=== PATIENT | female | born 1980 | race Caucasian/White ===

== ENCOUNTER 2020-02-06 11:23 | Outpatient (REF) | payer OTHER, SELFPAY ==
[2020-02-07 08:38] LABS: Syphilis Screen Nonreactive (Nonreactive)
[2020-02-07 08:43] LABS: ~HepC Num1 0.05 S/CO (0.00-0.79)
[2020-02-07 08:44] LABS: HIV AB/AG Nonreactive (Nonreactive); HIV Num 1 0.05 S/CO (0.00-0.99); ~Hepatitis C Antibody Nonreactive (Nonreactive)
[2020-02-07 09:26] LABS: CT PCR NOT DETECTED (Not Detect.)
[2020-02-07 09:27] LABS: NG PCR NOT DETECTED (Not Detect.)
[2020-02-07 10:32] LABS: BV Int Neg Control Negative (Negative); BV Int Pos Control Positive (Positive)
[2020-02-12 02:47] LABS: HPV mRNA E6/E7 rflx Not Detected (Not Detected)
== END 2020-02-06 11:24 | disposition home or self-care (01) ==
LOC: HO.LAB 11:23
PROVIDERS: PCP Family Medicine; Referring Provider Family Medicine; Visit Provider Advanced Practice Midwife
DX: Z01.419 Encounter for gynecological examination (general) (routine) without abnormal findings (principal); N39.3 Stress incontinence (female) (male); Z20.2 Contact with and (suspected) exposure to infections with a predominantly sexual mode of transmission
CPT/HCPCS: 86780; 86803; 87389; 87480; 87491; 87510; 87591; 87624; 87625; 87660; 88142; 99212

== ENCOUNTER → 2020-04-20 12:04 | Outpatient (BNVA) | payer OTHER, SELFPAY | PROVIDERS: PCP Family Medicine; Visit Provider Obstetrics & Gynecology | DX: Z76.89 Persons encountering health services in other specified circumstances (principal) ==

== ENCOUNTER 2021-03-24 13:50 | Outpatient (REF) | payer OTHER, SELFPAY ==
[2021-03-25 01:29] LABS: CT PCR NOT DETECTED (Not Detect.); NG PCR NOT DETECTED (Not Detect.)
[2021-03-25 11:07] LABS: BV Int Neg Control Negative (Negative); BV Int Pos Control Positive (Positive)
[2021-03-26 20:07] LABS: HPV mRNA E6/E7 rflx Not Detected (Not Detected)
== END 2021-03-24 13:51 | disposition home or self-care (01) ==
LOC: HO.LAB 13:50
PROVIDERS: PCP Family Medicine; Visit Provider Advanced Practice Midwife
DX: Z01.411 Encounter for gynecological examination (general) (routine) with abnormal findings (principal); Z11.51 Encounter for screening for human papillomavirus (HPV); N39.3 Stress incontinence (female) (male); Z20.2 Contact with and (suspected) exposure to infections with a predominantly sexual mode of transmission; Z87.42 Personal history of other diseases of the female genital tract
CPT/HCPCS: 87480; 87491; 87510; 87591; 87624; 87660; 88142

== ENCOUNTER 2022-09-15 11:33 | Outpatient (REF) | payer OTHER, SELFPAY ==
[2022-09-16 10:28] LABS: CT PCR NOT DETECTED (Not Detect.); NG PCR NOT DETECTED (Not Detect.)
[2022-09-16 11:13] LABS: BV Int Neg Control Negative (Negative); BV Int Pos Control Positive (Positive)
[2022-09-20 22:08] LABS: HPV mRNA E6/E7 rflx Not Detected (Not Detected)
== END 2022-09-15 11:34 | disposition home or self-care (01) ==
LOC: HO.LNP 11:33
PROVIDERS: PCP Family Medicine; Visit Provider Advanced Practice Midwife
DX: Z01.419 Encounter for gynecological examination (general) (routine) without abnormal findings (principal); N39.3 Stress incontinence (female) (male); R87.613 High grade squamous intraepithelial lesion on cytologic smear of cervix (HGSIL); Z20.2 Contact with and (suspected) exposure to infections with a predominantly sexual mode of transmission; Z79.899 Other long term (current) drug therapy; Z87.42 Personal history of other diseases of the female genital tract
CPT/HCPCS: 0353U; 87480; 87510; 87624; 87660; 88142

== ENCOUNTER 2023-07-06 13:03 | Outpatient (AMB) | payer OTHER, SELFPAY ==
--- NOTE | 2023-07-06 13:04 | MHC.OFFVIS ---
Intake Vital Signs 07/06/23 13:05 Height 5 ft 2 in Weight 156 lb BMI 28.5 BP 104/62 Intake Visit Reasons: control consult Intake Note: would like to start the patches. Tugboat Dispatcher Required: No Allergies penicillin V Allergy (Unknown, Verified 07/06/23 13:06) rash Medication List - Last Reconciled 07/06/23 by Bernarda Harper CNM albuterol sulfate 90 mcg/actuation inhalation azelastine 2 sprays intranasal BID fluticasone propionate 50 mcg/actuation 2 intranasal DAILY levocetirizine 5 mg PO QPM lorazepam 1 mg PO DAILY PRN montelukast 10 mg PO DAILY Is last menstrual period known: Yes Last menstrual period: 06/17/23 Post menopausal: No HPI control consult HPI Details Patient is here because she wants to get back on control. She has not been sexually active for a while she was on control patches in the past and she liked them and she wants to get back on them as well now. She has had a mammogram recently she has no personal history of blood clots she did note that her family has a history of something with cholesterol and buildup of plaque and both of her parents had some procedure to the carotid arteries but no clots per se there on medication for cholesterol hers has been fine every time it has been checked she has not sedentary. She does not want to get at this stage in her life she might be interested in a tubal ligation but for now she wants to start on the patches. We reviewed exactly how to start them and danger signs to look for and to report and seek emergency care if she ever got any pain in her leg her chest or her head. She does not smoke. She does have a history of abnormal Paps in the past but her last Pap smear was negative with negative HPV in September and she is due for an upcoming annual exam this coming September. She is planning also to use condoms 100%. She has not resumed sexual activity yet she wants to get taken care of for prevention 1st. She is going to start per my instructions around day 3 4 or 5 of her next menses when it is heaviest the 1st day for her is always spotting so that would not necessarily be the day to start I reviewed why it is better to start early in the cycle while she is on her menses rather than wait for Monday starts later on as many people make the mistake of starting on the Monday after the end of their menses and by then they may be ovulating. Also reviewed all the other more subtle side effects of control pills and their analogs patches, because now that she is older she may become more aware of them (in particular mentioned slightly decreased libido and possible slightly decreased vaginal lubrication for which water-based lubricants might be available and helpful). We will see her in September for her annual exam and Pap follow-up and patch follow-up as well as blood pressure check. [facility] Medical History (Updated 07/06/23 @ 13:49 by Bernarda Harper CNM) HGSIL (high grade squamous intraepithelial lesion) on Pap smear of cervix Anxiety Asthma Surgical History (Updated 07/06/23 @ 13:16 by KAREN Sood) History of loop electrical excision procedure (LEEP) No history of previous surgery Family History (Updated 07/06/23 @ 13:09 by KAREN Sood) Paternal Grandmother Diabetes mellitus Maternal Aunt Colon cancer Maternal Aunt Breast cancer Social History (Updated 07/06/23 @ 13:09 by KAREN Sood) Alcohol intake: current Alcohol intake frequency: holidays/special occasions only Use of substances other than those prescribed or required for medical reasons: Yes Substance Use Type: Marijuana Gender identity: Female Female Reproductive History Menstrual Age of Menarche: 10 Duration of menses: 3-5 days Date of last menstrual period: 06/17/23 control method: none Total pregnancies: 1 Full term: 1 Number of Living Children: 1 Date of last pap smear: 09/19/22 (negative) History of abnormal pap smear: Yes (2014 2012 2010 2008 ASCUS, 2013 2011 2009 2007 MIKAELA 1, 2008 MIKAELA 2) Physical Exam Vital Signs: Last Vital Signs BP 104/62 07/06/23 13:05 BMI result Body Mass Index 28.5 Assessment & Plan Assessment & Plan (1) HGSIL (high grade squamous intraepithelial lesion) on Pap smear of cervix: Comment: history of abnormal pap.. 03/24/21 pap= neg, neg hpv; 09/15/2022 Pap is negative with negative HPV. Code(s): R87.613 - High grade squamous intraepithelial lesion on cytologic smear of cervix (HGSIL) (2) Hx of abnormal cervical Pap smear: Comment: . Code(s): Z87.42 - Personal history of other diseases of the female genital tract (3) Encounter for control: Comment: To start on control patch during heaviest days of next period. Code(s): Z30.9 - Encounter for contraceptive management, unspecified Plan Patient is here because she wants to get back on control. She has not been sexually active for a while she was on control patches in the past and she liked them and she wants to get back on them as well now. She has had a mammogram recently she has no personal history of blood clots she did note that her family has a history of something with cholesterol and buildup of plaque and both of her parents had some procedure to the carotid arteries but no clots per se there on medication for cholesterol hers has been fine every time it has been checked she has not sedentary. She does not want to get at this stage in her life she might be interested in a tubal ligation but for now she wants to start on the patches. We reviewed exactly how to start them and danger signs to look for and to report and seek emergency care if she ever got any pain in her leg her chest or her head. She does not smoke. She does have a history of abnormal Paps in the past but her last Pap smear was negative with negative HPV in September and she is due for an upcoming annual exam this coming September. She is planning also to use condoms 100%. She has not resumed sexual activity yet she wants to get taken care of for prevention 1st. She is going to start per my instructions around day 3 4 or 5 of her next menses when it is heaviest the 1st day for her is always spotting so that would not necessarily be the day to start I reviewed why it is better to start early in the cycle while she is on her menses rather than wait for Monday starts later on as many people make the mistake of starting on the Monday after the end of their menses and by then they may be ovulating. Also reviewed all the other more subtle side effects of control pills and their analogs patches, because now that she is older she may become more aware of them (in particular mentioned slightly decreased libido and possible slightly decreased vaginal lubrication for which water-based lubricants might be available and helpful). We will see her in September for her annual exam and Pap follow-up and patch follow-up as well as blood pressure check. Medications: New norelgestromin-ethin.estradiol 150-35 mcg/24 hr (Xulane) apply once weekly for 3 weeks of a 4-week cycle (3 weeks on 1 week off, 3 weeks on 1 week off... 1 patch transdermal Q7D 9 ea 3RF Coding Level of Care Code Est Pt Level 3 (29561) Diagnoses HGSIL (high grade squamous intraepithelial lesion) on Pap smear of cervix R87.613 Hx of abnormal cervical Pap smear Z87.42 Encounter for control Z30.9
[2023-07-06 13:05] VITALS: BP 104/62; BMI 28.5
== END 2023-07-06 14:10 | disposition home or self-care (01) ==
PROVIDERS: PCP Family Medicine; Visit Provider Advanced Practice Midwife
DX: R87.613 High grade squamous intraepithelial lesion on cytologic smear of cervix (HGSIL) (principal); Z87.42 Personal history of other diseases of the female genital tract; Z30.9 Encounter for contraceptive management, unspecified
CPT/HCPCS: 99213

== ENCOUNTER → 2023-07-06 13:03 | Outpatient (BNVA) | payer OTHER, SELFPAY | PROVIDERS: PCP Family Medicine; Visit Provider Advanced Practice Midwife | DX: Z30.9 Encounter for contraceptive management, unspecified (principal); R87.613 High grade squamous intraepithelial lesion on cytologic smear of cervix (HGSIL); Z87.42 Personal history of other diseases of the female genital tract | CPT/HCPCS: 99212 ==

== ENCOUNTER 2023-09-25 09:34 | Outpatient (AMB) | payer OTHER, SELFPAY ==
--- NOTE | 2023-09-25 09:40 | MHC.OFFVIS ---
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 Surveillance Inspector Required: No Information Interpreted: clinical only Business Support Professional: Business Support Professional Present Allergies penicillin V Allergy (Unknown, Verified 09/25/23 09:42) rash Medication List - Last Reconciled 09/25/23 by Bernarda Harper CNM albuterol sulfate 90 mcg/actuation inhalation azelastine 2 sprays intranasal BID fluticasone propionate 50 mcg/actuation 2 intranasal DAILY levocetirizine 5 mg PO QPM lorazepam 1 mg PO DAILY PRN montelukast 10 mg PO DAILY norelgestromin-ethin.estradiol 150-35 mcg/24 hr (Xulane) 1 patch transdermal Q7D Is last menstrual period known: Yes Last menstrual period: 09/12/23 HPI HPI 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 She has seen a neurologist for urinary tract infections which were recurring since she became sexually active and she was given an antibiotic to take after sex which so far as seems to be working. She is also drinking cranberry juice we discussed unsweetened cranberry juice Shabnam is it as well. She gets her mammograms and is up to date she still sometimes has some incontinence if she coughs or sneezes or does some thing active and if her bladders full. on questioning it does seem that is when she is held her urine. She did discuss this with her primary care provider and she thinks that pelvic floor therapy referral has been placed by her PCC in her case because she lives in [facility] it would be better for it to be within that system so she could go near her house. She has happy on the patches but she also has contemplated tubal ligation when she discussed it with Dr. Jackson many years ago she was told she was too young but she is now 42 and her youngest is 17 years old and she is much more sure. She tries to keep herself in shape. She had a LEEP x1 with Dr. James in 2007 she did have recurrent abnormal Pap smears for approximately 10 years after that more recent Paps have been normal. [facility] Medical History HGSIL (high grade squamous intraepithelial lesion) on Pap smear of cervix Anxiety Asthma Surgical History History of loop electrical excision procedure (LEEP) No history of previous surgery Family History Paternal Grandmother Diabetes mellitus Maternal Aunt Colon cancer Maternal Aunt Breast cancer Social History Alcohol intake: current Alcohol intake frequency: holidays/special occasions only Substance Use Type: Marijuana Gender identity: Female Female Reproductive History Menstrual Age of Menarche: 10 Duration of menses: 6-7 days Date of last menstrual period: 09/12/23 control method: patch Total pregnancies: 1 Full term: 1 Date of last pap smear: 09/15/22 (neg,previous pap 2016 wnl) History of abnormal pap smear: Yes (2007,abnormal pap) Date of Mammogram: 05/28/23 (negative) History of abnormal mammogram: No Physical Exam Vital Signs: Last Vital Signs BP 100/60 09/25/23 09:42 BMI result Body Mass Index 28.5 Const General: healthy appearing, comfortable, no acute distress, well developed and alert Nutritional Appearance: average body habitus Orientation/consciousness: patient oriented x3 Limitations: no limitations HEENT Head: Yes normocephalic Neck Neck: Yes normal visual inspection Chest Chest palpation & inspection: normal inspection of the chest Breast/axilla inspection: normal inspection of the breasts and normal inspection of the axillae Breast/axilla palpation: normal palpation of the breasts and normal palpation of the axillae Resp Effort & Inspection: normal respiratory effort GI Inspection: Yes normal to inspection, No Abdominal wall edema and No distended Palpation (GI): Soft to palpation and nontender Other: External exam within it is evidence of previous obstetrical appears. Cervix is multiparous appears pink and smooth and healthy. Uterus feels slightly bulky and firm we will get ultrasound to evaluate adnexa nontender good tone with Kegel. General: Yes bladder normal to palpation External Female Exam: normal external appearance and normal appearance of the urethra Speculum Exam - Vagina: normal appearance of the vagina, normal palpation and normal vaginal discharge Speculum Exam - Cervix: normal appearance of the cervix, normal palpation and nontender Bimanual exam- vagina & uterus: normal bimanual exam, normal palpation, uterine size normal, bladder normal to palpation, consistency normal, normal palpation, uterine mobility normal, uterine shape normal, No Cervical tenderness present, non-tender and no cervical motion tenderness Bimanual Exam- Adnexa, other: normal adnexae, no masses, normal and No adnexal tenderness Neuro General: patient oriented x3 Assessment & Plan Assessment & Plan (1) HGSIL (high grade squamous intraepithelial lesion) on Pap smear of cervix: Comment: History of high-grade MIKAELA 2 with high-risk HPV. LEEP was done 2007, serial Paps done afterward continued to be abnormal for approximately 10 years. 03/24/21 pap= neg, neg hpv; 09/15/2022 Pap is negative with negative HPV. Code(s): R87.613 - High grade squamous intraepithelial lesion on cytologic smear of cervix (HGSIL) Category: Medical (2) Well woman exam with routine gynecological exam: Onset Date: ~06/2019 Code(s): Z01.419 - Encounter for gynecological examination (general) (routine) without abnormal findings Category: Medical (3) Potential exposure to STD: Comment: see entire plan for details Code(s): Z20.2 - Contact with and (suspected) exposure to infections with a predominantly sexual mode of transmission Category: Medical (4) Bulky or enlarged uterus: Code(s): N85.2 - Hypertrophy of uterus Category: Medical (5) Stress bladder incontinence, female: Comment: Has seen specialists in [place] and has excellent tone with Kegel, discussed not holding urine. She may get pelvic floor therapy referral from her PCC. 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 She has seen a neurologist for urinary tract infections which were recurring since she became sexually active and she was given an antibiotic to take after sex which so far as seems to be working. She is also drinking cranberry juice we discussed unsweetened cranberry juice Shabnam is it as well. She gets her mammograms and is up to date she still sometimes has some incontinence if she coughs or sneezes or does some thing active and if her bladders full. on questioning it does seem that is when she is held her urine. She did discuss this with her primary care provider and she thinks that pelvic floor therapy referral has been placed by her PCC in her case because she lives in [facility] it would be better for it to be within that system so she could go near her house. She has happy on the patches but she also has contemplated tubal ligation when she discussed it with Dr. Jackson many years ago she was told she was too young but she is now 42 and her youngest is 17 years old and she is much more sure. She tries to keep herself in shape. She had a LEEP x1 with Dr. James in 2007 she did have recurrent abnormal Pap smears for approximately 10 years after that more recent Paps have been normal. Pap done because of her history of recurrent abnormals even after the LEEP. Testing for gonorrhea chlamydia trich Gardnerella and Tegan done. Her discharge appears completely normal. Her uterus feels slightly bulky on exam so I am ordering an ultrasound to check to see if she is going to fibroids. We will have a follow-up visit after that If she wishes to discuss getting her tubes tied with Dr. Vergara she may make that appointment if she so chooses. Reviewed anatomy and discussed the physics of physical intimacy and bacteria entering the urethra. Orders: Orders US pelvic and transvaginal Today N85.2 - Hypertrophy of uterus, R87.613 - High grade squamous intraepithelial lesion on cytologic smear of cervix (HGSIL), Z01.419 - Encounter for gynecological examination (general) (routine) without abnormal findings, Z20.2 - Contact with and (suspected) exposure to infections with a predominantly sexual mode of transmission, Z78.9 - Other specified health status Medications: Refilled norelgestromin-ethin.estradiol 150-35 mcg/24 hr (Xulane) apply once weekly for 3 weeks of a 4-week cycle (3 weeks on 1 week off, 3 weeks on 1 week off... 1 patch transdermal Q7D 9 ea 3RF Coding Level of Care Code Est Pt Prev Care 40-64y(30639) Diagnoses HGSIL (high grade squamous intraepithelial lesion) on Pap smear of cervix R87.613 Well woman exam with routine gynecological exam Z01.419 Potential exposure to STD Z20.2 Bulky or enlarged uterus N85.2 Stress bladder incontinence, female N39.3
[2023-09-25 09:42] VITALS: BP 100/60; BMI 28.5
== END 2023-09-25 10:33 | disposition home or self-care (01) ==
LOC: HO.HWSM 09:34
PROVIDERS: PCP Family Medicine; Visit Provider Advanced Practice Midwife
DX: Z01.419 Encounter for gynecological examination (general) (routine) without abnormal findings (principal); R87.613 High grade squamous intraepithelial lesion on cytologic smear of cervix (HGSIL); Z20.2 Contact with and (suspected) exposure to infections with a predominantly sexual mode of transmission; N85.2 Hypertrophy of uterus; N39.3 Stress incontinence (female) (male)
CPT/HCPCS: 99396

== ENCOUNTER 2023-09-25 09:34 | Outpatient (REF) | payer OTHER, SELFPAY ==
[2023-09-26 04:06] LABS: CT PCR NOT DETECTED (Not Detect.); NG PCR NOT DETECTED (Not Detect.)
[2023-09-26 10:51] LABS: Bacterial Vaginosis PCR NEGATIVE (Negative); Candida Group PCR DETECTED (Not Detect); Candida glab krusei PCR NOT DETECTED (Not Detect); Trichomonas vaginalis PCR NOT DETECTED (Not Detect)
[2023-10-02 20:33] LABS: HPV mRNA E6/E7 rflx Not Detected (Not Detected)
== END 2023-09-25 09:35 | disposition home or self-care (01) ==
LOC: HO.LAB 09:34
PROVIDERS: PCP Family Medicine; Visit Provider Advanced Practice Midwife
DX: Z01.419 Encounter for gynecological examination (general) (routine) without abnormal findings (principal); N89.8 Other specified noninflammatory disorders of vagina; R87.613 High grade squamous intraepithelial lesion on cytologic smear of cervix (HGSIL); N85.2 Hypertrophy of uterus; N39.3 Stress incontinence (female) (male); Z78.9 Other specified health status; Z20.2 Contact with and (suspected) exposure to infections with a predominantly sexual mode of transmission
CPT/HCPCS: 0352U; 0353U; 87624; 88142; 99396

== ENCOUNTER 2023-09-29 10:52 | Outpatient (REF) | payer OTHER, SELFPAY ==
--- NOTE | ~2023-09-29 | US_ITS ---
EXAMINATION: US PELVIS CLINICAL INFORMATION: Abnormal Pap, last menstrual period September 13, 2023. History of LEEP. COMPARISON: None available. TECHNIQUE: Ultrasound of the pelvis is performed using both transabdominal and transvaginal transducers along with Doppler. Transvaginal imaging is performed due to inadequate visualization transabdominally. FINDINGS: The uterus is anteverted and measures 11.0 x 7.1 x 7.5 cm. Multiple uterine fibroids are present, largest right fundus 4.9 cm, fundus 4.5 cm, left fundus 4.8 cm, fundus 2.3 cm, fundus 3.7 cm, 4.3 cm. Limited visualization of endometrium due to multiple fibroids. Imaged section of endometrium with thickness of 14 mm. Bilateral ovaries were not visualized. Limited visualization due to bowel gas. No significant free fluid. US/US pelvic and transvaginal IMPRESSION: 1. Multiple uterine fibroids, largest 4.9 cm. 2. Limited visualization of endometrium due to multiple fibroids. Imaged section of endometrium with thickness of 14 mm. 3. Bilateral ovaries were not visualized.
== END 2023-09-29 10:53 | disposition home or self-care (01) ==
LOC: HO.US 10:52
PROVIDERS: PCP Family Medicine; Visit Provider Advanced Practice Midwife
DX: R87.613 High grade squamous intraepithelial lesion on cytologic smear of cervix (HGSIL) (principal); Z20.2 Contact with and (suspected) exposure to infections with a predominantly sexual mode of transmission; N85.2 Hypertrophy of uterus; Z78.9 Other specified health status
CPT/HCPCS: 76830; 76856

== ENCOUNTER 2023-10-20 09:36 | Outpatient (AMB) | payer OTHER, SELFPAY ==
--- NOTE | 2023-10-20 09:58 | A.OFFVIS_ITS ---
Vital Signs 10/20/23 09:59 Weight 156 lb BP 100/60 Intake Visit Reasons: ultrasound results Health Policy Analyst Required: No Health Policy Analyst Services: Health Policy Analyst Present Information Interpreted: clinical only World Geography Teacher: World Geography Teacher Present Allergies penicillin V Allergy (Unknown, Verified 10/20/23 10:00) rash Is last menstrual period known: Yes Last menstrual period: 10/12/23 Do you need a note to return to daycare/school/sports/work: No HPI HPI ultrasound results: Details: Patient is here to review her ultrasound results and also other lab results. [facility] Medical History (Updated 10/20/23 @ 10:01 by Bernarda Harper CNM) HGSIL (high grade squamous intraepithelial lesion) on Pap smear of cervix Anxiety Asthma Surgical History History of loop electrical excision procedure (LEEP) No history of previous surgery Family History Paternal Grandmother Diabetes mellitus Maternal Aunt Colon cancer Maternal Aunt Breast cancer Social History Alcohol intake: current Alcohol intake frequency: holidays/special occasions only Substance Use Type: Marijuana Gender identity: Female Female Reproductive History Menstrual Age of Menarche: 10 Duration of menses: 3-5 days Date of last menstrual period: 10/12/23 control method: patch Date of last pap smear: 09/26/23 (pending,2022,neg.) History of abnormal pap smear: Yes Results Reviewed Results Reviewed: Patient: Rachna Otero MR#: [id number] : 1980 Acct:[id number] Age/Sex: 42 / F ADM Date: 09/29/23 Loc: HO.US Attending Dr: Bernarda Harper CNM Ordering Physician: Bernarda Harper CNM Date of Service: 09/29/23 Procedure(s): US pelvic and transvaginal Accession Number(s): [id number] cc: Jose Angel Ramirez MD; Bernarda Harper CNM~ EXAMINATION: US PELVIS CLINICAL INFORMATION: Abnormal Pap, last menstrual period September 13, 2023. History of LEEP. COMPARISON: None available. TECHNIQUE: Ultrasound of the pelvis is performed using both transabdominal and transvaginal transducers along with Doppler. Transvaginal imaging is performed due to inadequate visualization transabdominally. FINDINGS: The uterus is anteverted and measures 11.0 x 7.1 x 7.5 cm. Multiple uterine fibroids are present, largest right fundus 4.9 cm, fundus 4.5 cm, left fundus 4.8 cm, fundus 2.3 cm, fundus 3.7 cm, 4.3 cm. Limited visualization of endometrium due to multiple fibroids. Imaged section of endometrium with thickness of 14 mm. Bilateral ovaries were not visualized. Limited visualization due to bowel gas. No significant free fluid. US/US pelvic and transvaginal IMPRESSION: 1. Multiple uterine fibroids, largest 4.9 cm. 2. Limited visualization of endometrium due to multiple fibroids. Imaged section of endometrium with thickness of 14 mm. 3. Bilateral ovaries were not visualized. Dictated By: Latisha Santos MD Signed By: <Electronically signed by Latisha Santos MD in OV> 10/18/23 1432 DD/ 1112 TD/TT: Food And Beverage Coordinator: Pap is not yet back the HPV is negative. Other STIs negative Tegan on vaginal probe patient is asymptomatic but will send script for p.r.n. use. Assessment & Plan Assessment & Plan (1) Uses hormonal contraceptive patch as primary control method: Code(s): Z78.9 - Other specified health status Category: Social Hx (2) Bulky or enlarged uterus: Code(s): N85.2 - Hypertrophy of uterus Category: Medical (3) HGSIL (high grade squamous intraepithelial lesion) on Pap smear of cervix: Comment: History of high-grade MIKAELA 2 with high-risk HPV. LEEP was done 2007, serial Paps done afterward continued to be abnormal for approximately 10 years. 03/24/21 pap= neg, neg hpv; 09/15/2022 Pap is negative with negative HPV.; 09/25/2023 Pap is still pending but the HPV is negative. Code(s): R87.613 - High grade squamous intraepithelial lesion on cytologic smear of cervix (HGSIL) Category: Medical (4) Fibroids: Code(s): D21.9 - Benign neoplasm of connective and other soft tissue, unspecified Category: Medical Plan Reviewed ultrasound with MZ. Patient will be referred to Dr. Vergara to have a discussion about fibroids. CBC and TSH ordered to be done at least several days before the visit so results are available. She reports that her periods used to be very crampy but they are much better since she had been on the patch and she has really not having any issues or anything now she is however worried and she was worried that fibroids could represent a precursor to cancer. Discussed that issues will be discussed further when she has her visit. Also reviewed other labs testing for STIs was all negative she did have Tegan show up in the labs but she has no vaginal itching or burning at her request I did send a prescription to her pharmacy so she has access to Monistat cream should she need it. Reviewed prevention of yeast and self-care in general . She also has severe allergies chronically manages with 2 nasal sprays that are prescribed Orders: Orders Complete Blood Count no Diff Today D21.9 - Benign neoplasm of connective and other soft tissue, unspecified, N85.2 - Hypertrophy of uterus, R87.613 - High grade squamous intraepithelial lesion on cytologic smear of cervix (HGSIL), Z78.9 - Other specified health status Thyroid Stimulating Hormone Today D21.9 - Benign neoplasm of connective and other soft tissue, unspecified, N85.2 - Hypertrophy of uterus, R87.613 - High grade squamous intraepithelial lesion on cytologic smear of cervix (HGSIL), Z78.9 - Other specified health status Medications: New miconazole nitrate 2% (Miconazole-7) 1 appful vaginal BEDTIME 7 days 45 grams 2RF Coding Level of Care Code Est Pt Level 3 (59501) Diagnoses Uses hormonal contraceptive patch as primary control method Z78.9 Bulky or enlarged uterus N85.2 HGSIL (high grade squamous intraepithelial lesion) on Pap smear of cervix R87.613 Fibroids D21.9
[2023-10-20 09:59] VITALS: BP 100/60
== END 2023-10-20 10:43 | disposition home or self-care (01) ==
LOC: HO.HWSM 09:36
PROVIDERS: PCP Family Medicine; Visit Provider Advanced Practice Midwife
DX: Z78.9 Other specified health status (principal); N85.2 Hypertrophy of uterus; R87.613 High grade squamous intraepithelial lesion on cytologic smear of cervix (HGSIL); D21.9 Benign neoplasm of connective and other soft tissue, unspecified
CPT/HCPCS: 99213

== ENCOUNTER → 2023-10-20 09:36 | Outpatient (BNVA) | payer OTHER, SELFPAY | PROVIDERS: PCP Family Medicine; Visit Provider Advanced Practice Midwife | DX: N85.2 Hypertrophy of uterus (principal); R87.613 High grade squamous intraepithelial lesion on cytologic smear of cervix (HGSIL); D21.9 Benign neoplasm of connective and other soft tissue, unspecified; Z78.9 Other specified health status | CPT/HCPCS: 99212 ==

== ENCOUNTER 2024-01-08 11:28 | Outpatient (AMB) | payer OTHER, SELFPAY ==
[2024-01-08 11:39] VITALS: BP 112/68; BMI 28.2
--- NOTE | 2024-01-08 11:39 | A.OFFVIS_ITS ---
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 The patient is doing well with no complaints. Are regular and light on control patch, no pelvic pain and or pressure symptoms. Last co testing in 10/01 was negative Pelvic ultrasound in 10/31 showed the following: The uterus is anteverted and measures 11.0 x 7.1 x 7.5 cm. Multiple uterine fibroids are present, largest right fundus 4.9 cm, fundus 4.5 cm, left fundus 4.8 cm, fundus 2.3 cm, fundus 3.7 cm, 4.3 cm. Limited visualization of endometrium due to multiple fibroids. Imaged section of endometrium with thickness of 14 mm. Bilateral ovaries were not visualized. Limited visualization due to bowel gas. No significant free fluid. Last mammogram done at [facility] according to the patient in 06/03 was negative, report not available [facility] Medical History HGSIL (high grade squamous intraepithelial lesion) on Pap smear of cervix Anxiety Asthma Surgical History History of loop electrical excision procedure (LEEP) No history of previous surgery Family History Paternal Grandmother Diabetes mellitus Maternal Aunt Colon cancer Maternal Aunt Breast cancer Social History Alcohol intake: current Alcohol intake frequency: holidays/special occasions only Substance Use Type: Marijuana Gender identity: Female Female Reproductive History Menstrual Age of Menarche: 10 Date of last menstrual period: 12/10/23 control method: patch Review of Systems Const All systems reviewed & are unremarkable except as noted in HPI and below Reports as per HPI and Reports no additional complaints GI Reports no additional complaints Reports no additional complaints Physical Exam Vital Signs: Last Vital Signs BP 112/68 01/08/24 11:39 BMI result Body Mass Index 28.2 Assessment & Plan Assessment & Plan (1) Uterine myoma: Code(s): D25.9 - Leiomyoma of uterus, unspecified Category: Medical Plan: Discussed with the patient the results of the ultrasound and the size of the myomas. Discussed with the patient risk of myosarcoma and symptoms that are caused by myomas including but not limited to pelvic pain, pressure symptoms, abnormal uterine bleeding. In addition discussed with the patient options of treatment for myomas including: Serial ultrasounds periodically to follow-up on the size of the myoma while targeting the treatment against fibroids related symptoms ( control pills/patch, Mirena IUD, progesterone treatment, GnRH agonist/antagonist, uterine artery embolization or endometrial ablation) versus surgical treatment including hysterectomy and or myomectomy. All pros and cons, risks and benefits of all options were discussed with the patient. The patient understands that delay in surgical treatment in case of myosarcoma can affect her prognosis, after further discussion, the patient decided to stay on the patch and and proceed with expectant management, order for repeat ultrasound placed in six-month. Instructions given the patient to schedule a six-month follow-up appointment. Discussed with the patient control Pap including mechanism of action, benefits (regular menses, less dysmenorrhea, less risk of ovarian cancer, ...), risks ( DVT, PE, Strokes, OR, increased breast ca, others). Orders: Orders US pelvic and transvaginal 6 Months D25.9 - Leiomyoma of uterus, unspecified Coding Level of Care Code Est Pt Level 3 (67914) Diagnoses Uterine myoma D25.9
== END 2024-01-08 12:25 | disposition home or self-care (01) ==
PROVIDERS: PCP Family Medicine; Visit Provider Obstetrics & Gynecology
DX: D25.9 Leiomyoma of uterus, unspecified (principal)
CPT/HCPCS: 99213

== ENCOUNTER → 2024-01-08 11:28 | Outpatient (BNVA) | payer OTHER, SELFPAY | PROVIDERS: PCP Family Medicine; Visit Provider Obstetrics & Gynecology | DX: D25.9 Leiomyoma of uterus, unspecified (principal) | CPT/HCPCS: 99212 ==

== ENCOUNTER 2024-07-08 11:08 | Outpatient (REF) | payer OTHER, SELFPAY ==
--- NOTE | ~2024-07-08 | US_ITS ---
CLINICAL HISTORY: D25.9 - Leiomyoma of uterus, unspecified US pelvis transvaginal and transabdominal with Doppler Comparison: US/SR - US PELVIC AND TRANSVAGINAL - 09/29/23 10:57 EDT Findings: Transvaginal scanning performed. Anteverted uterus is 15.1 cm length. Multiple uterine fibroids. Largest of these are within the right fundus measuring 54 mm, which is increased, within the central uterine fundus measuring 56 mm, which is increased, within the left uterine fundus measuring 59 mm, which is increased, and within the lower uterine segment measuring 60 mm, which is increased. 31 mm left mid uterine fibroid is present which is increased. 22 mm right mid uterine fibroid is present which is decreased. No endometrial lesion, 6 mm thickness. Right ovary 2.5 x 1.8 x 2.2 cm. Left ovary 3.5 x 2.1 x 1.5 cm. Normal color Doppler of both ovaries. No free fluid. IMPRESSION: 1. Increased uterine fibroids. 2. No acute process. This document has been electronically signed by: Jovanny Hernández MD on 07/08/2024 15:36:03
--- OUTSIDE RECORDS SUMMARY | 2024-07-08 12:44 | XMS_ITS | Data Portability ---
Author Organization [place] [facility], Allergy Address [address] [place] [id number] Care Team Providers Care Block Engraver Name Role Phone GRAYSON PALMA Primary Care Provider Assessment Encounter Date Assessment Date Assessment LastModified by Organization Details LastModified Time 12/28/2023 12/28/2023 43 year old negin david who complained of itching in her left ear at recent physical, noted by PCP to have fluid in her left ear. Ear examination today is normal with a well aerated middle ear space. There is no sign of infection. Audiogram demonstrates normal hearing. We discussed that allergies can cause itching deep in the ear from time to time. She could try a short acting antihistamine, such as chlorpheniramine in addition to her other medications. She cannot undergo immunotherapy given her history of anaphylaxis. For itching of the outer ear she can try hydrocortisone cream as needed. Follow up with any futher concerns. [email or web address] Not available 12/28/2023 14:05:42 Plan of Treatment Reminders Order Date Submit Date Provider Last Modified By Organization Details Last Modified Time Details Appointments None recorded. Lab None recorded. Referral None recorded. Procedures None recorded. Surgeries None recorded. Imaging None recorded. Medication Orders hydrocortis one 1 % topical cream 2023 024 [facility][id number], [address] [place], [address], 14:06:15 Patient TargetsNo targets recorded. Patient InstructionsNo instructions recorded. Reason for Referral None Reported. Results Created Date Observation Date Name Description Value Unit Range Abnormal Flag Note LastModifiedBy Organization Detail LastModifiedTime 11/29/19 24 02/23/2023 imagi ng/di agnos tic resul t No observ ation record ed. [email or web address] Not Available 16:38:34 11/29/19 24 02/23/2023 imagi ng/di agnos tic resul t No observ ation record ed. [email or web address] Not Available 16:38:36 11/29/19 24 02/23/2023 imagi ng/di agnos tic resul t No observ ation record ed. [email or web address] Not Available 16:38:38 12/28/19 audio gram No observ ation record ed. BARCODE Not Available 2023 15:34:27 Result Notes None recorded. Problems Name Problem SNOMED Code Status Onset Date Resolution Date Notes Provider Name and Address Organization Details Recorded Time Nasal congestio n 61347812 Active 2022 Nasal congestion ; Note: Date Diagnosed: 12/19/2022 1:56 PM (R09.81) Not Available [facility] 4 03:22:06 Chronic maxillary sinusitis 05510567 Active 2022 Chronic maxillary sinusitis; Note: Date Diagnosed: 12/19/2022 1:56 PM (J32.0) Not Available [facility] 4 03:22:06 Headache 69440754 Active 2022 Headache, unspecifie d; Note: Changed from R51 to R51.9 (12/28/2022 4:25 PM) , Date Diagnosed: 12/19/2022 1:56 PM (R51) Not Available [facility] 4 03:22:06 Allergic rhinitis 98333490 Active 2022 Allergic rhinitis, unspecifie d; Note: Date Diagnosed: 12/19/2022 1:56 PM (J30.9) Not Available [facility] 4 03:22:06 Abnormal auditory perceptio n 52303120 Active 2023 ENEDINA CUELLAR, [facility] [address] [address], [facility] [place], [place], [address] , [facility] 4 13:47:01 Abnormal auditory perceptio n 36768156 Active 2023 ENEDINA CUELLAR, [facility] [address] [facility],[address] [address], [place], [address] , [facility] - [facility] 4 13:47:12 Itching of skin 291095945 Active 2023 REBECA MARLEY PA-C [address] [facility],[address] [address], [place], [address] , [facility] - [facility] 4 14:05:48 Problem Notes None recorded. Procedures Surgical History Date Name Laterality Status Provider Name and Address Organization Details Recorded Time 12/28/2023 Comp Audio with Tymps (92164 & 42490) completed ENEDINAJOSE ANTONIO CUELLAR, AUD [address] [facility] [address], , [address], [facility] 12/28/2023 13:46:53 Imaging Results Imaging Date Name Status LastModified by Organiz ation Details LastModified Time 02/23/2023 imaging/diagno stic result completed Information not available 11/29/2023 16:38:34 02/23/2023 imaging/diagno stic result completed Information not available 11/29/2023 16:38:36 02/23/2023 imaging/diagno stic result completed Information not available 11/29/2023 16:38:38 12/28/2023 audiogram completed BARCODE Information no t available 12/28/2023 15:34:27 Procedure Notes None recorded. Medical Equipment None Reported. Allergies Allergen ID Allergen Name Allergen Category Reaction Reaction Severity Criticality Documentation Date Start Date Code Code System Note Provider Name and Address Organization Details Recorded Time 95138 Product containin g penicilli n (product) medicatio n other Not available Not available 08/22/2023 [id number] SNOMED React ion: Unkno wn; Not Available [facility] 00:48:01 Medications Name Sig Start Date Stop Date Status Note LastModified by Organization Details LastModified Time prednisone 10 mg tablet active Medicatio n ID: [id number] Br and Name: prednison e Send Method: E-Prescri bed Subs Allowed: subs OK Medica tionGener icName: prednison e Not Available Not Available Not Available albuterol sulfate 1.25 mg/3 mL solution for nebulizati on active Medicatio n ID: [id number] Br and Name: albuterol sulfate S end Method: E-Prescri bed Subs Allowed: subs OK Specia l Instructi on: INHALE 1 VIAL VIA NEBULIZER EVERY 6 HOURS NEEDED FOR WHEEZING Medicatio nGenericN daniel: albuterol sulfate Not Available Not Available Not Available Advair Diskus 100 mcg-50 mcg/dose powder for inhalation active Medicatio n ID: [id number] Br and Name: Advair Diskus Se nd Method: E-Prescri bed Subs Allowed: subs OK Medica tionGener icName: Advair Diskus Not Available Not Available Not Available meclizine 12.5 mg tablet active Medicatio n ID: [id number] Br and Name: meclizine Send Method: E-Prescri bed Subs Allowed: subs OK Medica tionGener icName: meclizine Not Available Not Available Not Available sulfametho xazole 800 mg-trimeth oprim 160 mg tablet TAKE 1 TABLET BY MOUTH AFTER SEXUAL INTERCOUR SE active Not Available Not Available No t Available Miconazole -7 2 % vaginal cream APPLY 1 APPLICATO RFUL VAGINALLY AT BEDTIME FOR 7 DAYS active Not Available Not Available No t Available hydrocorti sone 1 % topical cream APPLY A THIN LAYER TO THE AFFECTED AREA(S) BY TOPICAL ROUTE 2 TIMES PER DAY 2023 active Not Available Not Available Not Avai lable nitrofuran toin macrocryst al 100 mg capsule TAKE 1 CAPSULE BY MOUTH TWICE A DAY FOR 7 DAYS active Not Available Not Available No t Available montelukas t 10 mg tablet TAKE 1 TABLET BY MOUTH EVERY DAY active Not Available Not Available No t Available lorazepam 1 mg tablet active Medicatio n ID: [id number] Br and Name: lorazepam Send Method: E-Prescri bed Subs Allowed: subs OK Medica tionGener icName: lorazepam Not Available Not Available Not Available azelastine 137 mcg (0.1 %) nasal spray USE 2 SPRAYS NASALLY TWICE A DAY DIRECTED active Not Available Not Available No t Available epinephrin e 0.3 mg/0.3 mL injection, auto-injec tor INJECT 0.3 MG INTRAMUSC ULARLY ONCE active Not Available Not Available No t Available Ventolin HFA 90 mcg/actuat ion aerosol inhaler INHALE 2 PUFFS EVERY 6 HOURS active Not Available Not Available No t Available norelgestr omin 150 mcg-e.estr adiol 35 mcg/24 hr weekly transderm patch APPLY 1 PATCH EVERY 7 DAYS FOR 3 WEEKS LEAVE OFF FOR A WEEK THEN RESUME active Not Available Not Available No t Available hydrocorti sone 1 % topical cream with perineal applicator APPLY THIN COAT TO AFFECTED AREA TWICE A DAY active Not Available Not Available No t Available nitrofuran toin monohydrat e/macrocry stals 100 mg capsule active Medicatio n ID: [id number] Br and Name: nitrofura ntoin monohyd/m -cryst Se nd Method: E-Prescri bed Subs Allowed: subs OK Specia l Instructi on: TAKE 1 CAPSULE BY MOUTH TWICE A DAY FOR 5 DAYS Medi cationGen ericName: nitrofura ntoin monohyd/m -cryst Not Available Not Available Not Available levocetiri zine 5 mg tablet TAKE 1 TABLET BY MOUTH EVERY EVENING active Not Available Not Available No t Available Flonase Allergy Relief 50 mcg/actuat ion nasal spray,susp ension 2 puff once a day 2022 active Medicatio n ID: [id number] Du ration Value: 120 Brand Name: Flonase Allergy Relief Se nd Method: E-Prescri bed Subs Allowed: subs OK Medica tionGener icName: Flonase Allergy Relief Not Available Not Available Not Available Vitals Date Recorded Body height Body mass index (BMI) Body weight Provider Name and Address Organization Details Last Updated DateTime 12/28/2023 157.48 cm 27.4 kg/m2 [address] [facility] 12/28/2023 13:54:51 Social History None recorded. Functional Status None recorded. Mental Status None recorded. Family History Nothing Reported. Medical History No medical history recorded. Gynecological HistoryNo gynecological history recorded. Obstetrics History GPAL:G 0 P 0 0 0 0 Past Encounters Encounter ID Performer Location Encounter Start Date Encounter Closed Date Diagnosis/Indication Diagnosis SNOMED-CT Code Diagnosis ICD10 Code Diagnosis Note [id number] REBECA MARLEY PA-C [facility] [address] [place] [address] 12/28/2023 13:45:25 12/28/2023 14:15:51 Abnormal auditory perception 40662515 H93.299 Audiologic al evaluation results: Right ear: {{Normal* Normal through 2 kHz Mild M oderate Mo derately-s evere Jenny re Profoun d}} {{hearing* sloping to a mild slopi ng to a moderate s loping to moderately severe slo ping to severe slo ping to profound f lat high frequency low frequency mid frequency cookie bite dominguez curve}} {{with* se nsorineura l hearing loss with condu ctive hearing loss with mixed hearing loss with}} {{excellen t* good fa ir poor no measurable }} word recognitio n. Left ear: {{Normal* Normal through 2 kHz Mild M oderate Mo derately-s evere Jenny re Profoun d}} {{hearing* sloping to a mild slopi ng to a moderate s loping to moderately severe slo ping to severe slo ping to profound f lat high frequency low frequency mid frequency cookie bite dominguez curve}} {{with* se nsorineura l hearing loss with condu ctive hearing loss with mixed hearing loss with}} {{excellen t* good fa ir poor no measurable }} word recognitio n. Tympanomet ry: Right Ear:{{Type A* Type As Type Ad Type C Type C, shallow & rounded Ty pe B Type B with large volume Cou ld not maintain a hermetic seal}} Left Ear:{{Type A* Type As Type Ad Type C Type C, shallow & rounded Ty pe B Type B with large volume Cou ld not maintain a hermetic seal}} Itching of skin 31942339 0 L29.9 Health Concerns Section Related Observation LastModified by Organization Detai ls LastModified Time None Recorded Concern Status LastModified by Organization Details LastModified Time None Recorded Advance Directives Directive None Recorded Payers Encounter Date Sequence Insurance Name Policy Number Policy [place] Covered Member ID Costa Member ID Guarantor Name 12/28/2023 1 [facility] (MEDICAID HMO) [id number] Shahnaz Otero [id number] Rachna Otero Notes Date Note Type Note Provider Name and Address Organization Details Recorded Time 12/28/2023 text/html 43 year old negin david presents today for evaluation of the left ear.She reports she was seen by her PCP for a routine physical. At that time she was complaining of itching in her left ear. Her PCP mentioned she had fluid in the ear. She feels her hearing fluctuates. She has no otorrhea. Sometimes the itching is deep in the ear, sometimes it is at the ear canal opening.She has a history of allergic rhinitis. She uses a nasal steroid, azelastine and an oral antihistamine. This works well to control her allergy symptoms. She has a history of recurrent ear infections when she was younger. REBECA MARLEY PA-C [address] [place] [address], , [address], [place] - [facility] 12/28/2023 14:06:33 OBGyn Episode No OBEpisode recorded.
== END 2024-07-08 11:09 | disposition home or self-care (01) ==
LOC: HO.US 11:08
PROVIDERS: Visit Provider Obstetrics & Gynecology
DX: D25.9 Leiomyoma of uterus, unspecified (principal)
CPT/HCPCS: 76830; 76856

== ENCOUNTER → 2024-07-08 11:10 | Outpatient (BNV) | payer OTHER, SELFPAY | PROVIDERS: Visit Provider Radiology Diagnostic Radiology | DX: D25.9 Leiomyoma of uterus, unspecified (principal) | CPT/HCPCS: 76830; 76856 ==

== ENCOUNTER 2024-09-03 13:49 | Outpatient (AMB) | payer OTHER, SELFPAY ==
[2024-09-03 13:52] VITALS: BP 118/72; BMI 28.0
--- NOTE | 2024-09-03 13:52 | MHC.OFFVIS ---
Vital Signs 09/03/24 13:52 Height 5 ft 2 in Weight 153 lb BMI 28.0 BP 118/72 Intake Visit Reasons: Ultrasound follow up/ do not ris x2 Allergies penicillin V Allergy (Unknown, Verified 01/08/24 11:44) rash HPI Comments Details: Presenting for ultrasound follow-up regarding uterine myomas which showed the following: Transvaginal scanning performed. Anteverted uterus is 15.1 cm length. Multiple uterine fibroids. Largest of these are within the right fundus measuring 54 mm, which is increased, within the central uterine fundus measuring 56 mm, which is increased, within the left uterine fundus measuring 59 mm, which is increased, and within the lower uterine segment measuring 60 mm, which is increased. 31 mm left mid uterine fibroid is present which is increased. 22 mm right mid uterine fibroid is present which is decreased. No endometrial lesion, 6 mm thickness. Right ovary 2.5 x 1.8 x 2.2 cm. Left ovary 3.5 x 2.1 x 1.5 cm. Normal color Doppler of both ovaries. No free fluid. The patient is having regular menstrual cycles on control pads with no AUB, but is associated with bulk symptoms including pelvic cramping pressure and urinary frequency PFSH Medical History HGSIL (high grade squamous intraepithelial lesion) on Pap smear of cervix Anxiety Asthma Surgical History History of loop electrical excision procedure (LEEP) No history of previous surgery Family History Paternal Grandmother Diabetes mellitus Maternal Aunt Colon cancer Maternal Aunt Breast cancer Social History Alcohol intake: current Alcohol intake frequency: holidays/special occasions only Substance Use Type: Marijuana Gender identity: Female Female Reproductive History Menstrual Age of Menarche: 10 Review of Systems Const All systems reviewed & are unremarkable except as noted in HPI and below Reports as per HPI and Reports no additional complaints GI Reports no additional complaints Reports no additional complaints Physical Exam Vital Signs: Last Vital Signs BP 118/72 09/03/24 13:52 BMI result Body Mass Index 28.0 Assessment & Plan Assessment & Plan (1) Uterine myoma: Comment: incraesing in size Code(s): D25.9 - Leiomyoma of uterus, unspecified Category: Medical Plan: Discussed with the patient the findings on pelvic ultrasound & the risk of myosarcoma; in addition reviewed with the patient that malignancy and pre malignancy cannot be ruled out without hysterectomy for pathological evaluation ; furthermore, explained to the patient the limitation of pelvic ultrasound. Discussed with the patient the typical symptoms that are caused by myomas including but not limited to pelvic pain, pressure symptoms, abnormal uterine bleeding. In addition discussed with the patient options of treatment for myomas including: Serial ultrasounds periodically to follow-up on the size of the myoma while on control patch, GnRH agonist/antagonist, uterine artery embolization or endometrial ablation, versus surgical treatment including hysterectomy . All pros and cons, risks and benefits of all options were discussed with the patient. The patient understands that delay in surgical treatment in case of myosarcoma can affect her prognosis, after further discussion, the patient decided to proceed with definitive surgical management. Discussed with the patient the different types of hysterectomies including, vaginal, laparoscopic assisted vaginal, robotic assisted laparoscopic,& abdominal with BSO. All pros, cons, r/b of each approach were discussed the patient including evidence that morbidity is less and recovery is shorter with minimally invasive approaches to hysterectomy. Discussed with the patient the lack of availability of the robot DaVinci robot and/or minimally invasive threshing operator specialist at [facility]. Will refer to [facility] minimally invasive obstetrics and gynecology professor surgery for further management. Instructed the patient to call our office back in case a referral appointment is not scheduled, missed or canceled so that we will assist on rescheduling another appointment, the patient verbalized understanding agreed with the plan. Coding Level of Care Code Est Pt Level 3 (88313) Diagnoses Uterine myoma D25.9
--- OUTSIDE RECORDS SUMMARY | 2024-09-03 14:06 | XMS_ITS | Data Portability ---
Author Organization [facility], Allergy Address [address] [place] [id number] Care Team Providers Care Cut Off Sawyer Log Name Role Phone GRAYSON PALMA Primary Care [...] one 1 % topical cream 2023 024 [facility] #[id number], [address] [place], [address], 14:06:15 Patient TargetsNo targets recorded. Patient InstructionsNo [...] Organization Details Recorded Time Nasal congestio n 07198468 Active 2022 Nasal congestion ; Note: Date Diagnosed: 12/19/2022 1:56 PM (R09.81) Not Available [facility] 4 03:22:06 Chronic maxillary sinusitis 45364875 Active 2022 Chronic maxillary sinusitis; Note: Date Diagnosed: 12/19/2022 1:56 PM (J32.0) Not Available [facility] 4 03:22:06 Headache 74690572 Active 2022 Headache, unspecifie d; Note: Changed from R51 to R51.9 (12/28/2022 4:25 PM) , Date Diagnosed: 12/19/2022 1:56 PM (R51) Not Available [facility] 4 03:22:06 Allergic rhinitis 34447957 Active 2022 Allergic rhinitis, unspecifie d; Note: Date Diagnosed: 12/19/2022 1:56 PM (J30.9) Not Available [facility] 4 03:22:06 Abnormal auditory perceptio n 66427016 Active 2023 ENEDINA CUELLAR, [facility] [address] [address], [facility], [place], [address] , [facility] 4 13:47:01 Abnormal auditory perceptio n 96947643 Active 2023 ENEDINA CUELLAR, AUD [address] [facility],[address] [address], [place], [address] , [facility] - [facility] 4 13:47:12 Itching of skin 274849451 Active 2023 Regi jeffers [place] [facility] 4 14:05:48 Problem Notes None recorded. Procedures Surgical History Date Name Laterality Status Provider Name and Address Organization Details Recorded Time 12/28/2023 Comp Audio with Tymps - 86736 & 91429 completed ENEDINA CUELLAR, AUD [address] [facility] [address] [address], [place], [address], [facility] 12/28/2023 13:46:53 Imaging Results None recorded. Procedure Notes None recorded. Medical Equipment None Reported. Allergies Allergen ID Allergen Name Allergen Category Reaction Reaction Severity Criticality Documentation Date Start Date Code Code System Note Provider Name and Address Organization Details Recorded Time 78892 Product containin g penicilli n (product) medicatio n other Not available Not available 08/22/2023 41919 8001 SNOMED React ion: Unkno wn; Not Available [facility] Medications Name Sig Start Date Stop Date Status Note LastModified by Organization Details LastModified Time prednisone 10 mg tablet active Medicatio n ID: [id number] Br and Name: prednison e Send Method: E-Prescri bed Subs Allowed: subs OK Medica tionGener icName: prednison e Not Available Not Available Not Available albuterol sulfate 1.25 mg/3 mL solution for nebulizati on active Medicatio n ID: [id number] Br and Name: albuterol sulfate S end Method: E-Prescri bed Subs Allowed: subs OK Specia l Instructi on: INHALE 1 VIAL VIA NEBULIZER EVERY 6 HOURS NEEDED FOR WHEEZING Medicatio nGenericN daniel: albuterol sulfate Not Available Not Available Not Available Advair Diskus 100 mcg-50 mcg/dose powder for inhalation active Medicatio n ID: [id number] Br and Name: Advair Diskus Se nd Method: E-Prescri bed Subs Allowed: subs OK Medica tionGener icName: Advair Diskus Not Available Not Available Not Available meclizine 12.5 mg tablet active Medicatio n ID: [id number] Br and Name: meclizine Send Method: E-Prescri [...] 1 mg tablet active Medicatio n ID: [id number] Br and Name: lorazepam Send Method: E-Prescri bed Subs Allowed: subs [place] [facility]: [facility]epam Not Available Not Available Not Available azelastine 137 mcg (0.1 %) nasal spray USE 2 SPRAYS NASALLY TWICE A DAY DIRECTED 2024 active Not Available Not Available Not Avai lable epinephrin e 0.3 mg/0.3 mL injection, auto-injec [...] 100 mg capsule active Medicatio n ID: [id number] Br and Name: nitrofura ntoin monohyd/m -cryst [...] a day 2022 active Medicatio n ID: [id number] Du ration Value: 120 Brand Name: Flonase Allergy Relief Se nd Method: E-Prescri bed Subs Allowed: subs OK Medica tionGener icName: Flonase Allergy Relief Not Available Not Available Not Available Vitals Date Recorded Body height Body mass index (BMI) Body weight Provider Name and Address Organization Details Last Updated DateTime 12/28/2023 157.48 cm 27.4 kg/m2 91616.86 g Chandu Goodman [facility] 12/28/2023 13:54:51 Social History None recorded. Functional Status None recorded. Mental Status None recorded. Family History Nothing Reported. Medical History No medical history recorded. Gynecological HistoryNo gynecological history recorded. Obstetrics History GPAL:G 0 P 0 0 0 0 Past Encounters Encounter ID Performer Location Encounter Start Date Encounter Closed Date Diagnosis/Indication Diagnosis SNOMED-CT Code Diagnosis ICD10 Code Diagnosis Note [id number] REGI MARLEY PA-C [facility] [address] [address] 12/28/2023 13:45:25 12/28/2023 14:15:51 Abnormal auditory perception 48769380 H93.299 Audiologic al evaluation results: Right ear: Normal hearing with excellent word recognitio n. Left ear: Normal hearing with excellent word recognitio n. Tympanomet ry: Right Ear:Type A Left Ear:Type A Itching of skin 90176247 0 L29.9 Health Concerns Section Related Observation LastModified by Organization Detai ls LastModified Time None Recorded Concern Status LastModified by Organization Details LastModified Time None Recorded Advance Directives Directive None Recorded Payers Insurance Date Sequence Insurance Name Policy Number Policy [place] Covered Member ID [place] Member ID Guarantor Name 04/05/2024 1 [facility] [id number] Shahnaz Otero [id number] Rachna Otero Notes Date Note Type Note [...] recurrent ear infections when she was younger. Regi jeffers [place] - [facility] 12/28/2023 14:06:33 OBGyn Episode No OBEpisode recorded.
== END 2024-09-03 14:15 | disposition home or self-care (01) ==
LOC: HO.HWS 13:50
PROVIDERS: PCP Family Medicine; Visit Provider Obstetrics & Gynecology
DX: D25.9 Leiomyoma of uterus, unspecified (principal)
CPT/HCPCS: 99213

== ENCOUNTER → 2024-09-03 13:49 | Outpatient (BNVA) | payer OTHER, SELFPAY | PROVIDERS: PCP Family Medicine; Visit Provider Obstetrics & Gynecology | DX: D25.9 Leiomyoma of uterus, unspecified (principal) | CPT/HCPCS: 99212 ==